=== PATIENT | female | born 1955 | race Two or more races ===

== ENCOUNTER 2017-10-29 23:38 | Emergency (ER) | payer MEDICAID ==
[~2017-10-29] VITALS: Ht 162.6 cm; Wt 85.7 kg
[2017-10-30 01:34] VITALS: BP 136/68
[2017-10-30] MEDS ORDERED: TETANUS-DIPTH-ACEL PERTUSSIS 0.5ML SYRG IM ONE (01:45)
[2017-10-30] MEDS ORDERED: LIDOCAINE W/ EPINEPHRINE 1% 20ML VIAL IJ ONE (01:45)
[2017-10-30] MEDS ORDERED: cefTRIAXone SOD 1,000 MG VL IM ONE (01:45)
[2017-10-30] MEDS ORDERED: LIDOCAINE W/ EPINEPHRINE 1 % INJ 30ML ONE (01:49)
[2017-10-30] MEDS ORDERED: ACETAMINOPHEN/CODEINE#3 (300/30mg) TAB PO ONE (02:45)
== END 2017-10-30 02:50 | disposition home or self-care (01) ==
LOC: ER 23:38
DX: S41.111A Laceration without foreign body of right upper arm, initial encounter (principal); W26.9XXA Contact with unspecified sharp object(s), initial encounter; Y93.89 Activity, other specified; Y99.8 Other external cause status; Y92.89 Other specified places as the place of occurrence of the external cause
CPT/HCPCS: 12035; 90715; 96372; 99284; J0696; J2001